=== PATIENT | female | born 1945 | race Two or more races ===

== ENCOUNTER 2020-05-04 16:17 | Inpatient (IN) | payer OTHER ==
[~2020-05-04] VITALS: Ht 154.9 cm; Wt 63.1 kg
[2020-05-04] MEDS ORDERED: HYDROmorphone HCL 2 MG/ML VL IV ONE (17:00)
[2020-05-04] MEDS ORDERED: SODIUM CHLORIDE 0.9% 500 ML IVB ONE (17:00)
[2020-05-04] MEDS ORDERED: SODIUM CHLORIDE 0.9% 1,000 ML IV ONE (17:00)
[2020-05-04] MEDS ORDERED: PROMETHAZINE HCL 25 MG/ML 1ML IV PRN (17:00)
[2020-05-04 18:00] LABS: Basophils # (auto) 0.1 10 ^3/uL (0-0.2); Basophils % (auto) 0.6 % (0.0-2.0); Eosinophils # (auto) 0 10 ^3/uL (0-0.8); Eosinophils % (auto) 0.3 % (0.0-7.0); Hematocrit 40.5 % (36.0-46.0); Hemoglobin 13.3 g/dL (12.2-16.2); Lymphocytes # (auto) 0.9 10 ^3/uL (0.4-5.4); Lymphocytes % (auto) 8.4 % (10.0-50.0); Mean Corpuscular Hemoglobin 28.6 pg (28.0-32.0); Mean Corpuscular Volume 86.8 fL (80.0-100.0); Monocytes # (auto) 0.7 10 ^3/uL (0-1.3); Neutrophils # (auto) 9.4 10 ^3/uL (1.6-8.6); Neutrophils % (auto) 84.7 % (37.0-80.0); Nucleated Red Blood Cells % 0.1 %; Platelet Count (auto) 295 10^3/uL (140-450); Red Blood Cells 4.67 10^6/uL (4.0-5.20); Red Cell Distribution Width 14.4 % (11.8-14.3); White Blood Cell 11.1 10^3/uL (4.4-10.8)
[2020-05-04 18:17] LABS: INR 0.99 (0.9-1.15); Partial Thromboplastin Time 20.8 sec (23.0-31.2)
[2020-05-04 18:19] LABS: Albumin 3.7 g/dL (3.4-5.0); Anion Gap 8 (5-15); Blood Urea Nitrogen 11 mg/dL (7-18); Calcium 9.4 mg/dL (8.5-10.1); Carbon Dioxide 25 mmol/L (21-32); Chloride 101 mmol/L (98-107); Glucose 129 mg/dL (74-106); Potassium 4.1 mmol/L (3.5-5.1); Sodium 134 mmol/L (136-145)
[2020-05-04 18:20] LABS: Magnesium 2.5 mg/dL (1.6-2.6)
[2020-05-04 18:23] LABS: Alanine Aminotransferase 31 U/L (13-56); Alkaline Phosphatase 74 U/L (45-117); Aspartate Aminotransferase 16 U/L (15-37); BUN/Creatinine Ratio 11.8; Bilirubin, Total 0.4 mg/dL (0.2-1.0); GFR African American 75 mL/min; GFR Non-African American 62 mL/min; Total Protein 8.4 g/dL (6.4-8.2)
[2020-05-04] MEDS ORDERED: IOHEXOL 300 MG/ML 100ML BOTTLE IJ ONE ×2 (18:24→21:50)
[2020-05-04] MEDS ORDERED: VANCOMYCIN 1GM/250ML 250 ML IV ONE (23:00)
[2020-05-04] MEDS ORDERED: cefTRIAXone 1GM/50ML D5W 50 ML IV ONE (23:00)
[2020-05-04] MEDS ORDERED: PIPERACILLIN-TAZOB 3.375GM 100 ML IV ONE (23:00)
[2020-05-05] VITALS (7 sets, daily range): BP systolic 117–142; BP diastolic 72–95
[2020-05-05] MEDS: D5W/SOD CHL 0.45%/KCL 20MEQ 1,000 ML IV SCH ×3 (00:47→18:26)
[2020-05-05] MEDS ORDERED: MORPHINE SULF INJ 2 MG/ML SYRINGE 1ML IV PRN (02:15)
[2020-05-05] MEDS ORDERED: HYDROcodone-ACET 5/325MG TAB PO PRN (02:15)
[2020-05-05] MEDS ORDERED: MORPHINE SULFATE 4 MG/ML SYR/VIAL IV PRN (02:15)
[2020-05-05] MEDS ORDERED: SODIUM CHLORIDE 0.9% 1,000 ML IV SCH (02:15)
[2020-05-05] MEDS ORDERED: ONDANSETRON HCL 4 MG/2 ML VIAL IV PRN ×2 (02:15→13:45)
[2020-05-05] MEDS ORDERED: ACETAMINOPHEN 325 MG TAB PO PRN (02:15)
[2020-05-05] MEDS ORDERED: NITROGLYCERIN 0.4 MG SL TAB SL PRN (02:15)
[2020-05-05 03:19] LABS: Urine Bacteria NONE SEEN /hpf (None Seen); Urine Blood Negative /uL (Negative); Urine Mucus FEW (None Seen); Urine WBC <1 /hpf (0 - 5)
[2020-05-05 03:20] LABS: Urine Specific Gravity > 1.050 (1.001-1.035)
[2020-05-05 06:44] LABS: Basophils # (auto) 0.1 10 ^3/uL (0-0.2); Basophils % (auto) 0.8 % (0.0-2.0); Eosinophils # (auto) 0 10 ^3/uL (0-0.8); Eosinophils % (auto) 0.4 % (0.0-7.0); Hematocrit 39.4 % (36.0-46.0); Hemoglobin 12.9 g/dL (12.2-16.2); Lymphocytes # (auto) 1.4 10 ^3/uL (0.4-5.4); Lymphocytes % (auto) 13.5 % (10.0-50.0); Mean Corpuscular Hemoglobin 28.8 pg (28.0-32.0); Mean Corpuscular Hgb Conc. 32.9 g/dL (32.0-36.0); Mean Corpuscular Volume 87.7 fL (80.0-100.0); Monocytes % (auto) 10.3 % (0.0-12.0); Neutrophils # (auto) 7.6 10 ^3/uL (1.6-8.6); Nucleated Red Blood Cells % 0.2 %; Platelet Count (auto) 241 10^3/uL (140-450); Red Blood Cells 4.49 10^6/uL (4.0-5.20); Red Cell Distribution Width 14.3 % (11.8-14.3); White Blood Cell 10.2 10^3/uL (4.4-10.8)
[2020-05-05 06:59] LABS: Partial Thromboplastin Time 24.6 sec (23.0-31.2)
[2020-05-05 07:10] LABS: Albumin 3.3 g/dL (3.4-5.0); BUN/Creatinine Ratio 9.9; Calcium 8.7 mg/dL (8.5-10.1); Potassium 4.2 mmol/L (3.5-5.1)
[2020-05-05 07:13] LABS: Bilirubin, Total 0.5 mg/dL (0.2-1.0); Total Protein 7.6 g/dL (6.4-8.2)
[2020-05-05] MEDS ORDERED: VANCOMYCIN PER PHARMACY 0 MG IV SCH (07:15)
[2020-05-05] MEDS: cefTRIAXone 1GM/50ML D5W 50 ML IV SCH (09:38)
[2020-05-05] MEDS: FAMOTIDINE (10MG/ML) 2ML VL IV SCH (09:39)
[2020-05-05] MEDS ORDERED: LIDOCAINE W/ EPINEPHRINE 1% 20ML VIAL ONE (12:36)
[2020-05-05] MEDS ORDERED: BUPIVACAINE 0.5% MPF INJ 30ML SDV IJ ONE (12:36)
[2020-05-05] MEDS ORDERED: ROCURONIUM 10MG/ML 10ML VIAL IV ONE (12:42)
[2020-05-05] MEDS ORDERED: PROPOFOL 10 MG/ML 20 ML IV ONE (12:44)
[2020-05-05] MEDS ORDERED: ePHEDrine SULFATE 50 MG/ML AMP ONE (12:46)
[2020-05-05] MEDS ORDERED: HYDROmorphone HCL 2 MG/ML VL ONE (12:46)
[2020-05-05] MEDS ORDERED: ONDANSETRON HCL 4 MG/2 ML VIAL ONE (12:49)
[2020-05-05] MEDS ORDERED: DexAMETHasone SOD PHOS 10MG/1ML VIAL INJ ONE (12:49)
[2020-05-05] MEDS ORDERED: GLYCOPYRROLATE 0.2 MG/ML 1ML VIAL ONE (13:27)
[2020-05-05] MEDS ORDERED: NEOSTIGMINE 1 MG/ML INJ (10mg/10ML VIAL) ONE (13:27)
[2020-05-05] MEDS ORDERED: HYDROmorphone HCL 2 MG/ML VL IV PRN ×3 (13:45→14:00)
[2020-05-05] MEDS ORDERED: VANCOMYCIN 500 MG in D5W 5% 100 ML IV SCH ×2 (15:00→22:00)
[2020-05-05] MEDS ORDERED: VANCOMYCIN 1GM/250ML 250 ML IV ONE (21:22)
[2020-05-06] MEDS: D5W/SOD CHL 0.45%/KCL 20MEQ 1,000 ML IV SCH ×3 (06:16→23:24)
[2020-05-06 07:06] LABS: Basophils # (auto) 0 10 ^3/uL (0-0.2); Basophils % (auto) 0.2 % (0.0-2.0); Eosinophils # (auto) 0 10 ^3/uL (0-0.8); Eosinophils % (auto) 0.4 % (0.0-7.0); Hematocrit 35.3 % (36.0-46.0); Hemoglobin 11.7 g/dL (12.2-16.2); Lymphocytes # (auto) 1.3 10 ^3/uL (0.4-5.4); Lymphocytes % (auto) 16.1 % (10.0-50.0); Mean Corpuscular Hgb Conc. 33.3 g/dL (32.0-36.0); Mean Corpuscular Volume 87.1 fL (80.0-100.0); Monocytes # (auto) 1.1 10 ^3/uL (0-1.3); Monocytes % (auto) 13.5 % (0.0-12.0); Neutrophils # (auto) 5.8 10 ^3/uL (1.6-8.6); Neutrophils % (auto) 69.8 % (37.0-80.0); Nucleated Red Blood Cells % 0.1 %; Platelet Count (auto) 217 10^3/uL (140-450); Red Blood Cells 4.05 10^6/uL (4.0-5.20); Red Cell Distribution Width 14.1 % (11.8-14.3); White Blood Cell 8.3 10^3/uL (4.4-10.8)
[2020-05-06 07:21] LABS: Potassium 3.8 mmol/L (3.5-5.1)
[2020-05-06 07:27] LABS: BUN/Creatinine Ratio 8.8; Calcium 8.3 mg/dL (8.5-10.1)
[2020-05-06 07:29] LABS: Bilirubin, Total 0.5 mg/dL (0.2-1.0); Total Protein 6.9 g/dL (6.4-8.2)
[2020-05-06 08:15] VITALS: BP 127/74
[2020-05-06 09:00] VITALS: BP 127/74
[2020-05-06] MEDS: FAMOTIDINE (10MG/ML) 2ML VL IV SCH (09:46)
[2020-05-06] MEDS: cefTRIAXone 1GM/50ML D5W 50 ML IV SCH (09:46)
[2020-05-06 13:00] VITALS: BP 139/85
[2020-05-06] MEDS ORDERED: amLODIPine BESYLATE 5 MG TAB PO ONE (15:45)
[2020-05-06 17:00] VITALS: BP 129/83
[2020-05-06] MEDS: HYDROcodone-ACET 5/325MG TAB PO PRN (17:26)
[2020-05-06 22:15] VITALS: BP 112/69
[2020-05-07 05:08] VITALS: BP 132/84
[2020-05-07 07:09] LABS: Basophils # (auto) 0.1 10 ^3/uL (0-0.2); Basophils % (auto) 1.3 % (0.0-2.0); Eosinophils # (auto) 0.1 10 ^3/uL (0-0.8); Eosinophils % (auto) 1.9 % (0.0-7.0); Hematocrit 37.4 % (36.0-46.0); Hemoglobin 12.2 g/dL (12.2-16.2); Lymphocytes # (auto) 1.6 10 ^3/uL (0.4-5.4); Mean Corpuscular Hemoglobin 28.4 pg (28.0-32.0); Mean Corpuscular Hgb Conc. 32.6 g/dL (32.0-36.0); Mean Corpuscular Volume 87.1 fL (80.0-100.0); Monocytes # (auto) 1.1 10 ^3/uL (0-1.3); Monocytes % (auto) 14.8 % (0.0-12.0); Neutrophils # (auto) 4.3 10 ^3/uL (1.6-8.6); Platelet Count (auto) 226 10^3/uL (140-450); Red Blood Cells 4.29 10^6/uL (4.0-5.20); Red Cell Distribution Width 13.9 % (11.8-14.3); White Blood Cell 7.1 10^3/uL (4.4-10.8)
[2020-05-07 07:25] LABS: BUN/Creatinine Ratio 5.6; Calcium 8.3 mg/dL (8.5-10.1); Potassium 3.5 mmol/L (3.5-5.1)
[2020-05-07 08:30] VITALS: BP 148/89
[2020-05-07] MEDS: cefTRIAXone 1GM/50ML D5W 50 ML IV SCH (09:38)
[2020-05-07] MEDS: HYDROcodone-ACET 5/325MG TAB PO PRN (09:39)
[2020-05-07] MEDS: FAMOTIDINE (10MG/ML) 2ML VL IV SCH (09:40)
[2020-05-07] MEDS ORDERED: amLODIPine BESYLATE 5 MG TAB PO SCH (10:00)
[2020-05-07 12:30] VITALS: BP 127/75
[2020-05-07] MEDS: D5W/SOD CHL 0.45%/KCL 20MEQ 1,000 ML IV SCH (13:25)
[2020-05-07 14:42] VITALS: BP 127/75
== END 2020-05-07 15:30 | disposition home or self-care (01) | DRG 337 ==
LOC: ER 16:17 → EDBD 16:17 → TELE 05-05 02:05 → TELE-EAST 05-05 04:16 → TELE-CENTR 05-05 12:44 → CENTRAL 05-06 17:16
PROVIDERS: ADMIT Nurse Practitioner Family; ATTEND Internal Medicine
PROC: 0DN80ZZ Release Small Intestine, Open Approach (ICD-10-PCS; 2020-05-05)
PROC: 0WQF0ZZ Repair Abdominal Wall, Open Approach (ICD-10-PCS; principal; 2020-05-05 12:51)
DX: K42.0 Umbilical hernia with obstruction, without gangrene (principal); K43.0 Incisional hernia with obstruction, without gangrene; I10 Essential (primary) hypertension; Z20.822 Contact with and (suspected) exposure to COVID-19; D72.829 Elevated white blood cell count, unspecified; R73.9 Hyperglycemia, unspecified; D25.9 Leiomyoma of uterus, unspecified; E78.5 Hyperlipidemia, unspecified; Z85.038 Personal history of other malignant neoplasm of large intestine
CPT/HCPCS: 36415; 71045; 74018; 74177; 76856; 80048; 80053; 81001; 83690; 83735; 84443; 84484; 85025; 85610; 85730; 86850; 86900; 86901; 87426; 93005; 96361; 96365; 96375; G0378; J0696; J1100; J2405; J2543; J2704; J3490; J7060